=== PATIENT | female | born 1960 | race Caucasian/White ===

== ENCOUNTER → 2024-07-27 | Outpatient (CLI) | payer OTHER ==
[~2024-07-27] VITALS: Ht 162.5 cm; Wt 107.0 kg
[~2024-07-27] MED LIST: ASPIRIN CHEWABL81 MG PO; Balanced Salt Solution 500 ML OPH SCH; CILOSTAZOL100 MG PO; CYMBALTA20 M1 PO; Cefuroxime Sodium 5 MG in BALANCED SALT IRRIG SOLN NO.2 0.5 ML,SYRINGE, DISPOSABLE, 10 ... IO SCH; METFORMIN HYDR500 MG PO; OFLOXACIN 0.3% 5 ML BOTTLE ONE; PHENYLEPHRINE/KETOROLAC 4 ML in Balanced Salt Solution 500 ML OPH SCH; PLAVIX75 M1 PO; POVIDONE IODINE 5% OPHTHALMIC 30 ML BOTTLE OPH ONE; POVIDONE IODINE 5% OPHTHALMIC 30 ML BOTTLE OPH SCH; Phenylephrine Hydrochloride 2 ML BOT OPH ONE; Phenylephrine Hydrochloride 2 ML BOT OPH SCH; Proparacaine Hydrochloride 15 ML BOT OPH ONE; Proparacaine Hydrochloride 15 ML BOT OPH SCH; SIMVASTATIN5 MG PO; SINGULAIR10 M1 PO; SODIUM CHLORIDE 0.9% 1,000 ML IV SCH; SYNTHROID,LEVO88 MCG PO; TETRACAINE HCL 10 DROP BOT OPH SCH; TOBRAMYCIN 2.5 ML BOT OPH SCH; TOPROL XL25 MG PO; TROPICAMIDE 3 ML BOT OPH ONE; TROPICAMIDE 3 ML BOT OPH SCH; TYLE3UD PO; Tetracaine Hydrochloride 0.5% 4 ML BOT OPH ONE; Tetracaine Hydrochloride 0.5% 4 ML BOT OPH SCH; prednisoLONE acetate 1% OPHTHALMIC 5 ML BOT OPH SCH
== END ==
LOC: SDC 07-22 10:15 → CARD 00:49 → SDC 00:49 → EDSTATUS 10:15
PROVIDERS: ATTEND Ophthalmology
DX: I48.91 Unspecified atrial fibrillation (principal); Z53.8 Procedure and treatment not carried out for other reasons